=== PATIENT | female | born 1925 | race Caucasian/White ===

== ENCOUNTER 2016-10-01 14:07 | Emergency (ER) | payer MEDICARE, BC ==
[~2016-10-01 14:07] MED LIST: AMLODIPINE-BEN1 EAC3 PO; AMOXICILLIN500 M1 PO; ANTIVERT25 MG PO; ASPIR 8181 M1 PO; ATORVASTATIN CA20 M1 PO; B-121000 MC3 PO; BENAZEPRIL HCL20 M2 PO; CALCIUM + VITA1 EAC4 PO; CLARITIN10 M8 PO; COLACE100 M1 PO; LEVAQUIN250 MG PO; LEXAPRO10 M2 PO; LEXAPRO5 MG PO; LIPITOR20 MG PO; MULTIVITAMINS1 EAC6 PO; NASONEX17 GM NS; NORVASC10 M2 PO; PLAVIX75 M1 PO; PLAVIX75 MG PO; PRESERVISION A1 EAC5 PO; PROBIOTIC1 EA10 PO; SYSTANE 0.3-0.415 ML OP; TOPROL XL25 MG PO; XALATAN2.5 ML OP; XANAX0.25 M1 PO; XANAX0.25 MG PO
[2016-10-01] MEDS ORDERED: AMLODIPINE-BEN1 EAC9 PO (14:36)
[2016-10-01] MEDS ORDERED: CALTRATE GUMMY1 EACH CH (14:36)
[2016-10-01] MEDS ORDERED: NITROSTAT0.4 MG/TAB SL (15:32)
[2016-11-09] MEDS ORDERED: TYLENOL ARTHRI650 M1 PO (18:36)
== END 2016-10-01 15:47 ==
LOC: EDMED 14:07
DX: S09.90XA Unspecified injury of head, initial encounter (principal); S16.1XXA Strain of muscle, fascia and tendon at neck level, initial encounter; S70.11XA Contusion of right thigh, initial encounter; W01.0XXA Fall on same level from slipping, tripping and stumbling without subsequent striking against object, initial encounter; Y92.009 Unspecified place in unspecified non-institutional (private) residence as the place of occurrence of the external cause

== ENCOUNTER 2016-10-08 15:47 | Emergency (ER) | payer MEDICARE, BC ==
[~2016-10-08 15:47] MED LIST changes: +AMLODIPINE-BEN1 EAC9 PO; +CALTRATE GUMMY1 EACH CH; +NITROSTAT0.4 MG/TAB SL
[2016-10-08] MEDS ORDERED: ULTRAM50 M1 PO (17:11)
[2016-11-09] MEDS ORDERED: TYLENOL ARTHRI650 M1 PO (18:36)
== END 2016-10-08 17:32 ==
LOC: EDMED 15:47
DX: B02.29 Other postherpetic nervous system involvement (principal); I25.10 Atherosclerotic heart disease of native coronary artery without angina pectoris; I10 Essential (primary) hypertension; Z95.1 Presence of aortocoronary bypass graft; Z88.2 Allergy status to sulfonamides; Z79.82 Long term (current) use of aspirin; Z79.899 Other long term (current) drug therapy